=== PATIENT | male | born 1995 | race Caucasian/White ===

== ENCOUNTER → 2017-02-28 | Outpatient (CLI) | payer BC | END | disposition home or self-care (01) | LOC: LABWHC1 10:31 | PROVIDERS: ATTEND Psychiatry & Neurology Neurology | DX: G40.209 Localization-related (focal) (partial) symptomatic epilepsy and epileptic syndromes with complex partial seizures, not intractable, without status epilepticus (principal) | CPT/HCPCS: 36415; 80177 ==

== ENCOUNTER → 2017-12-05 | Outpatient (CLI) | payer BC | END | disposition home or self-care (01) | LOC: LABWHC1 11:14 | PROVIDERS: ATTEND Psychiatry & Neurology Neurology | DX: G40.209 Localization-related (focal) (partial) symptomatic epilepsy and epileptic syndromes with complex partial seizures, not intractable, without status epilepticus (principal) | CPT/HCPCS: 36415; 80177 ==

== ENCOUNTER → 2018-09-01 | Outpatient (CLI) | payer BC ==
[2018-09-01 15:18] LABS: HCT 49.1 % (39.0-53.0); HGB 16.8 gm/dL (13.0-17.5); MCH 30.3 pg (25.0-35.0); MCHC 34.3 g/dL (31.0-37.0); MCV 88.4 fL (80.0-100.0); Mean Platelet Volume 7.6; Platelet Count 183 k/uL (150-450); RBC 5.55 m/uL (4.30-5.90); RDW 12.2 % (11.5-15.5); WBC 6.4 k/uL (3.8-10.6)
[2018-09-01 15:30] LABS: ALT 30 U/L (21-72); AST 21 U/L (17-59); Albumin 4.9 g/dL (3.5-5.0); Alkaline Phosphatase 86 U/L (38-126); Anion Gap 9 mmol/L; Blood Urea Nitrogen 20 mg/dL (9-20); Calcium 10.3 mg/dL (8.4-10.2); Carbon Dioxide 28 mmol/L (22-30); Chloride 105 mmol/L (98-107); Glucose 65 mg/dL (74-99); Potassium 4.5 mmol/L (3.5-5.1); Sodium 142 mmol/L (137-145); Total Bilirubin 0.7 mg/dL (0.2-1.3); Total Protein 8.3 g/dL (6.3-8.2)
== END ==
LOC: LABWHC1 14:55
PROVIDERS: ATTEND Psychiatry & Neurology Neurology
DX: G40.909 Epilepsy, unspecified, not intractable, without status epilepticus (principal); Z79.899 Other long term (current) drug therapy
CPT/HCPCS: 36415; 80053; 85027

== ENCOUNTER → 2018-10-12 | Outpatient (CLI) | payer BC | END | disposition home or self-care (01) | LOC: LABWHC1 10:13 | PROVIDERS: ATTEND Psychiatry & Neurology Neurology | DX: G40.209 Localization-related (focal) (partial) symptomatic epilepsy and epileptic syndromes with complex partial seizures, not intractable, without status epilepticus (principal) | CPT/HCPCS: 36415; 80164 ==

== ENCOUNTER → 2019-07-09 | Outpatient (CLI) | payer BC ==
--- NOTE | 2019-07-11 07:46 | MR ---
EXAMINATION TYPE: MR brain wo/w con DATE OF EXAM: 07/09/2019 COMPARISON: MRI brain June 06, 2014. CT brain May 11, 2014. HISTORY: Seizures, headaches TECHNIQUE: Multiplanar, multisequence images of the brain and brainstem is performed without and with IV contras t, utilizing 7.5 mL intravenous Gadavist . FINDINGS: Diffusion weighted images demonstrate no evidence of a recent infarct or other diffusion ab normality. There is no extra-axial fluid collection or significant white matter signal abnormality. The ventricular system and cisternal spaces are normal in size and appearance. The brain volume is age appropriate. T2 coronal weighted images show hippocampal gyri are symmetric and felt within luan l limits. Midline structures demonstrate normal morphology. The craniocervical junction appears within normal limits. Post contrast images demonstrate no abnormal enhancement. The dural venous sinuses appear pa tent. The visualized sinuses are clear and the globes are intact. IMPRESSION: Fairly unremarkable study. No significant change from 2014 studies.
== END | disposition home or self-care (01) ==
LOC: RADMRIMAIN 21:19
PROVIDERS: ATTEND Psychiatry & Neurology Neurology
DX: G40.209 Localization-related (focal) (partial) symptomatic epilepsy and epileptic syndromes with complex partial seizures, not intractable, without status epilepticus (principal)
CPT/HCPCS: 70553; A9585

== ENCOUNTER → 2020-01-26 | Outpatient (CLI) | payer BC | END | disposition home or self-care (01) | LOC: LABWHC1 13:37 | PROVIDERS: ATTEND Psychiatry & Neurology Neurology | DX: G40.209 Localization-related (focal) (partial) symptomatic epilepsy and epileptic syndromes with complex partial seizures, not intractable, without status epilepticus (principal) | CPT/HCPCS: 36415; 80164 ==

== ENCOUNTER → 2022-01-28 | Outpatient (CLI) | payer BC ==
[2022-01-28 19:10] LABS: Platelet Count 159 X 10*3/uL (140-440)
[2022-01-28 21:04] LABS: Valproic Acid (Depakene) 30.4 ug/mL (50.0-100.0)
== END | disposition home or self-care (01) ==
LOC: LABWHC1 12:28
PROVIDERS: ATTEND Psychiatry & Neurology Neurology
DX: G40.209 Localization-related (focal) (partial) symptomatic epilepsy and epileptic syndromes with complex partial seizures, not intractable, without status epilepticus (principal)
CPT/HCPCS: 36415; 80164; 84450; 84460; 85049

== ENCOUNTER → 2022-05-08 | Outpatient (CLI) | payer BC ==
[2022-05-08 14:21] LABS: HCT 46.8 % (39.6-50.0); HGB 15.2 g/dL (13.0-17.0); MCH 28.5 pg (27.0-32.0); MCHC 32.5 g/dL (32.0-37.0); MCV 87.8 fL (80.0-97.0); Mean Platelet Volume 11.5 fL (9.5-12.2); NRBC Per 100 WBC 0 /100 WBCS (0.0-0.0); Platelet Count 213 X 10*3/uL (140-440); RBC 5.33 X 10*6/uL (4.40-5.60); RDW 11.5 % (11.5-14.5); WBC 7.48 X 10*3/uL (4.50-10.00)
[2022-05-08 14:58] LABS: African American GFR (CKD) 95.8 (60.0-200.0); Albumin 5.3 g/dL (3.8-4.9); Albumin/Globulin Ratio 2.35 (1.60-3.17); Anion Gap 13.4 mmol/L (10.00-18.00); BUN/Creat Ratio 15.55 Ratio (12.00-20.00); Blood Urea Nitrogen 18.5 mg/dL (9.0-27.0); Calcium 10.6 mg/dL (8.7-10.3); Carbon Dioxide 27.5 mmol/L (20.0-27.5); Globulin 2.2 g/dL (1.6-3.3); Non-African American GFR(CKD) 82.6 (60.0-200.0); Potassium 4.5 mmol/L (3.5-5.5); T4, Free (Free Thyroxine) 1.86 ng/dL (0.800-1.800); Total Bilirubin 0.8 mg/dL (0.30-1.20); Total Protein 7.5 g/dL (6.2-8.2)
== END | disposition home or self-care (01) ==
LOC: LABWHC1 08:28
PROVIDERS: ATTEND Psychiatry & Neurology Neurology
DX: G40.209 Localization-related (focal) (partial) symptomatic epilepsy and epileptic syndromes with complex partial seizures, not intractable, without status epilepticus (principal); G44.85 Primary stabbing headache; Z79.899 Other long term (current) drug therapy
CPT/HCPCS: 36415; 80053; 82306; 82607; 84439; 84443; 84481; 85027

== ENCOUNTER 2022-07-12 19:39 | Emergency (ER) | payer BC ==
[2022-07-12 19:49] VITALS: TEMP 98
--- NOTE | 2022-07-12 20:06 | ED ---
General Adult HPI - General Chief complaint: Chest Pain Stated complaint: Back Pain Time Seen by Provider: 07/12/22 19:56 Source: patient, EMS Mode of arrival: EMS Limitations: no limitations - History of Present Illness Initial comments: Patient presents to the ED by ambulance for evaluation with his grandfather at bedside. Patient states that he fell asleep in his bed after working the overnight shift last night, and he states that he awoke this evening on his couch. Patient states that he is unsure how he got to the couch, and he also states that he noticed that the trash can in the bathroom was knocked over. Patient states that he is the only person that lives in his residence. Patient states that he has a history of seizures, and he states that his neurologist took him off of his Depakote about 5 months ago. Patient states that his last seizure was 7 years ago. Patient is concerned that he may have had a seizure today. Patient, however, denies having any postictal symptoms. Patient states that he did have some chest pain earlier this evening, but it has since resolved. Patient is currently only complaining of having mid upper back pain that is worse when he changes positions. Patient denies medication abuse or overdose, illicit drug use, alcohol use, fever or chills, headache, focal numbness/weakness/neuro deficit, visual changes, speech difficulty, neck pain, extremity pain, pleuritic pain, dyspnea, cough or cold symptoms, palpitations, dizziness, abdominal pain, nausea/vomiting/diarrhea, dysuria or urinary symptom s, leg or calf swelling or pain, or any other symptoms or complaints. - Related Data Home Medications Medication Instructions Recorded Confirmed levETIRAcetam [Keppra] 750 mg PO BID 06/04/16 06/04/16 Allergies Allergy/AdvReac Type Severity Reaction Status Date / Time No Known Allergies Allergy Verified 11/27/14 22:37 Review of Systems ROS Statement: Those systems with pertinent positive or pertinent negative responses have been documented in the HPI. ROS Other: All systems not noted in ROS Statement are negative. Past Medical History Past Medical History: Seizure Disorder Additional Past Medical History / Comment(s): seizure as an infant and then one aprox 1 year ago. History of Any Multi-Drug Resistant Organisms: None Reported Additional Past Surgical History / Comment(s): right ankle Past Psychological History: No Psychological Hx Reported Past Alcohol Use History: Occasional Past Drug Use History: None Reported General Exam Limitations: no limitations General appearance: alert, in no apparent distress Head exam: Present: atraumatic, normocephalic Eye exam: Present: normal appearance, PERRL, EOMI ENT exam: Present: mucous membranes moist Neck exam: Present: other (Trachea is in midline). Absent: tenderness, meningismus Respiratory exam: Present: normal lung sounds bilaterally. Absent: respiratory distress, wheezes, rales, rhonchi, stridor, chest wall tenderness Cardiovascular Exam: Present: regular rate, normal rhythm, normal heart sounds, other (Normal radial pulses bilaterally) GI/Abdominal exam: Present: soft. Absent: distended, tenderness, guarding Extremities exam: Present: full ROM, other (Negative Homans sign bilaterally). Absent: tenderness, pedal edema, calf tenderness Back exam: Present: normal inspection, full ROM. Absent: tenderness Neurological exam: Present: alert, oriented X3, CN II-XII intact. Absent: motor sensory deficit Psychiatric exam: Present: normal affect, normal mood Skin exam: Present: warm, dry, intact, normal color Course Vital Signs 07/12/22 19:41 Temperature 98.0 F Pulse Rate 76 Respiratory 16 Rate Blood Pressure 143/100 O2 Sat by Pulse 99 Oximetry - Reevaluation(s) Reevaluation #1: 07/12/22 22:16 Patient denies development of any new pain or symptoms while in the ED. Patient remains alert and breathing comfortably. Patient and grandfather are aware the patient's test results, and patient feels comfortable being discharged from the ED at this time. Patient was counseled about chest pain, back pain, vertebral c ompression fractures and seizures. Patient was given seizure precaution instructions, including instructions not to drive or operate heavy machinery. Patient was instructed to follow up closely with his primary care provider, as well as his neurologist. Patient was clearly explained return and follow-up instructions, and he feels comfortable with this plan. EKG Findings - EKG Comments: EKG Findings:: Normal sinus rhythm, ventricular rate of 72 bpm, no ectopy, normal AK and QRS intervals, normal QT interval, normal axis, no ST or T-wave abnormality Medical Decision Making - Medical Decision Making Patient's labs are fairly unremarkable other than an elevated d-dimer. Antoni allen's imaging studies are also fairly unremarkable other than a T7 compression fracture of uncertain age. I suspect that the patient's compression fracture is likely old, but given that the patient is experiencing back pain, I have explained to him that he potentially may have sustained a recent T7 compression fracture. Patient was counseled about compression fractures. I do not suspect that the patient's chest pain is due to an emergent medical or cardiac condition. Patient's CT angiography chest is negative for PE. Patient's troponin is within normal limits. Patient's EKG is fairly unremarkable. I have explained to the patient that a seizure is possible given the patient states th at he fell asleep in his bed and woke up on his couch, but I think that this too is quite unlikely. Still, patient was given seizure precaution instructions, and was instructed to follow up closely with his neurology for further evaluation and management. Will discharge patient home with his grandfather at this time. Patient feels comfortable with this plan. - Lab Data Result diagrams: 07/12/22 20:35 07/12/22 20:35 Lab Results 07/12/22 07/12/22 07/12/22 Range/Units 20:35 20:35 20:35 WBC 13.6 H (3.8-10.6) k/uL RBC 5.34 (4.30-5.90) m/uL Hgb 15.7 (13.0-17.5) gm/dL Hct 47.0 (39.0-53.0) % MCV 87.9 (80.0-100.0) fL MCH 29.3 (25.0-35.0) pg MCHC 33.3 (31.0-37.0) g/dL RDW 11.6 (11.5-15.5) % Plt Count 178 (150-450) k/uL MPV 8.4 Neutrophils % 89 % Lymphocytes % 7 % Monocytes % 3 % Eosinophils % 1 % Basophils % 0 % Neutrophils # 12.1 H (1.3-7.7) k/uL Lymphocytes # 1.0 (1.0-4.8) k/uL Monocytes # 0.3 (0-1.0) k/uL Eosinophils # 0.1 (0-0.7) k/uL Basophils # 0.1 (0-0.2) k/uL PT 10.6 (9.0-12.0) sec INR 1.0 (<1.2) APTT 22.1 (22.0-30.0) sec D-Dimer 3.55 H (<0.60) mg/L FEU Sodium 139 (137-145) mmol/L Potassium 4.4 (3.5-5.1) mmol/L Chloride 103 (98-107) mmol/L Carbon Dioxide 23 (22-30) mmol/L Anion Gap 13 mmol/L BUN 21 H (9-20) mg/dL Creatinine 1.06 (0.66-1.25) mg/dL Est GFR (CKD-EPI)AfAm >90 (>60 ml/min/1.73 sqM) Est GFR (CKD-EPI)NonAf >90 (>60 ml/min/1.73 sqM) Glucose 93 (74-99) mg/dL Calcium 10.0 (8.4-10.2) mg/dL Magnesium 2.1 (1.6-2.3) mg/dL Total Bilirubin 0.7 (0.2-1.3) mg/dL AST 40 (17-59) U/L ALT 47 (4-49) U/L Alkaline Phosphatase 99 (38-126) U/L Troponin I (0.000-0.034) ng/mL Total Protein 7.5 (6.3-8.2) g/dL Albumin 4.7 (3.5-5.0) g/dL 07/12/22 Range/Units 20:35 WBC (3.8-10.6) k/uL RBC (4.30-5.90) m/uL Hgb (13.0-17.5) gm/dL Hct (39.0-53.0) % MCV (80.0-100.0) fL MCH (25.0-35.0) pg MCHC (31.0-37.0) g/dL RDW (11.5-15.5) % Plt Count (150-450) k/uL MPV Neutrophils % % Lymphocytes % % Monocytes % % Eosinophils % % Basophils % % Neutrophils # (1.3-7.7) k/uL Lymphocytes # (1.0-4.8) k/uL Monocytes # (0-1.0) k/uL Eosinophils # (0-0.7) k/uL Basophils # (0-0.2) k/uL PT (9.0-12.0) sec INR (<1.2) APTT (22.0-30.0) sec D-Dimer (<0.60) mg/L FEU Sodium (137-145) mmol/L Potassium (3.5-5.1) mmol/L Chloride (98-107) mmol/L Carbon Dioxide (22-30) mmol/L Anion Gap mmol/L BUN (9-20) mg/dL Creatinine (0.66-1.25) mg/dL Est GFR (CKD-EPI)AfAm (>60 ml/min/1.73 sqM) Est GFR (CKD-EPI)NonAf (>60 ml/min/1.73 sqM) Glucose (74-99) mg/dL Calcium (8.4-10.2) mg/dL Magnesium (1.6-2.3) mg/dL Total Bilirubin (0.2-1.3) mg/dL AST (17-59) U/L ALT (4-49) U/L Alkaline Phosphatase (38-126) U/L Troponin I <0.012 (0.000-0.034) ng/mL Total Protein (6.3-8.2) g/dL Albumin (3.5-5.0) g/dL - Radiology Data Chest x-ray: No acute cardiopulmonary disease/process. Noncontrast head CT: Negative unenhanced head CT scan. No change. CT angiography chest with IV contrast: No evidence of pulmonary embolism. No acute lung disease. T7 compression fracture of uncertain age. Disposition Clinical Impression: Chest pain, Back pain, Compression fracture of T7 vertebra Narrative: Possible seizure Disposition: HOME SELF-CARE Condition: Stable Instructions (If sedation given, give patient instructions): Chest Pain (ED), Vertebral Compression Fracture (ED), Recurrent Seizures in Adults (ED), Back Pain (ED) Additional Instructions: Return to the ER immediately should you develop new or worsening pain, a seizure, shortness of breath, a fever, feeling dizzy or faint, or new or worsening symptoms. Follow up closely with your primary care provider, as well as your neurologist. Is patient prescribed a controlled substance at d/c from ED?: No Referrals: None,Stated [Primary Care Provider] - 1-2 days Marcello Paiz MD [STAFF PHYSICIAN] - 1-2 days Time of Disposition: 22:24
[2022-07-12] MEDS ORDERED: SODIUM CHLORIDE 0.9% 1,000 ML IV STA (20:29)
[2022-07-12 20:44] LABS: Basophils # (A) 0.1 k/uL (0-0.2); Basophils % (A) 0 %; Eosinophils # (A) 0.1 k/uL (0-0.7); Eosinophils % (A) 1 %; HGB 15.7 gm/dL (13.0-17.5); Lymphocytes % (A) 7 %; MCH 29.3 pg (25.0-35.0); MCHC 33.3 g/dL (31.0-37.0); MCV 87.9 fL (80.0-100.0); Mean Platelet Volume 8.4; Monocytes # (A) 0.3 k/uL (0-1.0); Monocytes % (A) 3 %; Neutrophils # (A) 12.1 k/uL (1.3-7.7); Neutrophils % (A) 89 %; Platelet Count 178 k/uL (150-450); RBC 5.34 m/uL (4.30-5.90); RDW 11.6 % (11.5-15.5); WBC 13.6 k/uL (3.8-10.6)
[2022-07-12 20:52] LABS: ALT 47 U/L (4-49); AST 40 U/L (17-59); African American GFR (CKD) >90 (>60 ml/min/1.73 sqM); Albumin 4.7 g/dL (3.5-5.0); Alkaline Phosphatase 99 U/L (38-126); Anion Gap 13 mmol/L; Blood Urea Nitrogen 21 mg/dL (9-20); Carbon Dioxide 23 mmol/L (22-30); Chloride 103 mmol/L (98-107); Glucose 93 mg/dL (74-99); Magnesium 2.1 mg/dL (1.6-2.3); Non-African American GFR(CKD) >90 (>60 ml/min/1.73 sqM); Potassium 4.4 mmol/L (3.5-5.1); Sodium 139 mmol/L (137-145); Total Bilirubin 0.7 mg/dL (0.2-1.3); Total Protein 7.5 g/dL (6.3-8.2)
[2022-07-12 20:59] LABS: Partial Thromboplastin Time 22.1 sec (22.0-30.0); Prothrombin Time 10.6 sec (9.0-12.0)
--- NOTE | 2022-07-12 21:11 | XR ---
EXAMINATION TYPE: XR chest 2V DATE OF EXAM: 07/12/2022 9:07 PM COMPARISON: None TECHNIQUE: XR chest 2V Frontal and lateral views of the chest. CLINICAL INDICATION:Male, 27 years old with history of Chest Pain; FINDINGS: Lungs/Pleura: There is no evidence of pleural effusion, focal consolidation, or pneumothorax. Pulmonary vascularity: Unremarkable. Heart/mediastinum: Cardiomediastinal silhouette is unremarkable. Musculoskeletal: No acute osseous pathology. IMPRESSION: No acute cardiopulmonary disease/process.
--- NOTE | 2022-07-12 21:13 | CT ---
EXAMINATION TYPE: CT brain wo con DATE OF EXAM: 07/12/2022 COMPARISON: 05/11/2014 HISTORY: Possible Seizure CT DLP: 1103.4 mGycm Automated exposure control for dose reduction was used. Images of the brain obtained with no contrast. Ventricles and sulci appear normal. There is no mass effect or midline shift. No sign of intracranial hemorrhage. Calvarium is intact. There is normal aeration of the mastoid sinuses. IMPRESSION: Negative unenhanced head CT scan. No change.
--- NOTE | 2022-07-12 22:09 | CT ---
EXAMINATION TYPE: CT chest angio for PE DATE OF EXAM: 07/12/2022 COMPARISON: None HISTORY: Chest pain, elevated d-dimer, rule out PE CT DLP: 289 mGycm Automated exposure control for dose reduction was used. CONTRAST: Performed with IV Contrast, patient injected with 100cc mL of Isovue 370. There are Three-D postprocessed images. There is no mediastinal adenopathy. Thoracic aorta is intact. No aneurysm or dissection. There are no hilar masses. There is normal contrast opacification of the pulmonary arteries. No filling defect. The heart size is normal. No pericardial effusion. No pleural effusion. Upper abdominal soft tissues are intact. The lungs are clear of infiltrate. No evidence of a pulmonary mass. There is T7 compression fracture 25%. The age of the fractures is not clear. There is no thoracic paraspinal mass. No focal bone destr uction. IMPRESSION: No evidence of pulmonary embolism. No acute lung disease. T7 compression fracture of uncertain age.
[2022-07-12 22:49] VITALS: BP 136/90; PULSE 78; RESP 18
== END 2022-07-12 22:41 | disposition home or self-care (01) ==
LOC: EC 19:39
DX: M48.54XA Collapsed vertebra, not elsewhere classified, thoracic region, initial encounter for fracture (principal); R07.9 Chest pain, unspecified; R79.1 Abnormal coagulation profile
CPT/HCPCS: 99285; 96360; 36415; 93005; 85379; 80053; 83735; 84484; 85025; 85610; 85730; 71046; 70450; 71275; Q9967

== ENCOUNTER → 2022-07-26 | Outpatient (CLI) | payer BC ==
[2022-07-26 23:06] LABS: T4, Free (Free Thyroxine) 1.4 ng/dL (0.800-1.800)
== END | disposition home or self-care (01) ==
LOC: LABWHC1 14:26
PROVIDERS: ATTEND Family Medicine
DX: E05.90 Thyrotoxicosis, unspecified without thyrotoxic crisis or storm (principal)
CPT/HCPCS: 36415; 84439; 84443; 84481; 86376

== ENCOUNTER → 2022-08-15 | Outpatient (CLI) | payer BC ==
--- NOTE | 2022-08-15 16:47 | NM ---
EXAMINATION TYPE: NM bone scan whole body DATE OF EXAM: 08/15/2022 COMPARISON: NONE HISTORY: Wedge compression deformity in the region of T7-T8. Delayed whole-body scanning was performed following the injection of 21.7 mCi Tc 99m MDP. Images wer e acquired 3 hours post injection. FINDINGS: In the region at T7 there is focal increased radiotracer accumulation suggesting the compression defo rmity at this level is acute. There is focal increased intensity within the right inferior acetabulum. Metastatic disease or acute trauma could be considered. There is some mild increased uptake along the medial left femur. Correlate for posttraumatic changes. Metastatic lesion is not excluded. There are 2 foci of radiotracer within the region of the inferior left left pubic symphysis. IMPRESSION: 1. Scattered areas of nonspecific uptake. Consider metastatic disease as well as trauma. 2. Uptake in the region of T7 suspicious for acute compression deformity.
== END | disposition home or self-care (01) ==
LOC: RADNMMAIN 09:57
PROVIDERS: ATTEND Physical Medicine & Rehabilitation
DX: S22.060A Wedge compression fracture of T7-T8 vertebra, initial encounter for closed fracture (principal)
CPT/HCPCS: 78306; A9503

== ENCOUNTER → 2022-10-31 | Outpatient (CLI) | payer BC | END | disposition home or self-care (01) | LOC: LABWHC1 12:28 | PROVIDERS: ATTEND Psychiatry & Neurology Neurology | DX: G40.209 Localization-related (focal) (partial) symptomatic epilepsy and epileptic syndromes with complex partial seizures, not intractable, without status epilepticus (principal) | CPT/HCPCS: 36415; 80235 ==

== ENCOUNTER → 2022-12-04 | Outpatient (CLI) | payer BC | END | disposition home or self-care (01) | LOC: LABWHC1 08:28 | PROVIDERS: ATTEND Psychiatry & Neurology Neurology | DX: G40.209 Localization-related (focal) (partial) symptomatic epilepsy and epileptic syndromes with complex partial seizures, not intractable, without status epilepticus (principal) | CPT/HCPCS: 36415; 80235 ==

== ENCOUNTER → 2023-07-30 | Outpatient (CLI) | payer BC | END | disposition home or self-care (01) | LOC: LABWHC1 09:45 | PROVIDERS: ATTEND Psychiatry & Neurology Neurology | DX: G40.209 Localization-related (focal) (partial) symptomatic epilepsy and epileptic syndromes with complex partial seizures, not intractable, without status epilepticus (principal) | CPT/HCPCS: 36415; 80235 ==

== ENCOUNTER → 2023-10-13 | Outpatient (CLI) | payer BC | END | disposition home or self-care (01) | LOC: LABWHC1 09:02 | PROVIDERS: ATTEND Psychiatry & Neurology Neurology | DX: G40.209 Localization-related (focal) (partial) symptomatic epilepsy and epileptic syndromes with complex partial seizures, not intractable, without status epilepticus (principal) | CPT/HCPCS: 36415; 80235 ==

== ENCOUNTER 2023-12-20 16:49 | Emergency (ER) | payer OTHER, BC ==
[2023-12-20] MEDS ORDERED: SODIUM CHLORIDE 0.9% 1,000 ML IV STA ×2 (17:17→20:54)
[2023-12-20 17:18] VITALS: TEMP 97.8
[2023-12-20 17:41] LABS: Basophils % (A) 0 %; Eosinophils # (A) 0.1 k/uL (0-0.7); Eosinophils % (A) 2 %; HCT 47.9 % (39.0-53.0); HGB 16.3 gm/dL (13.0-17.5); Lymphocytes # (A) 1.2 k/uL (1.0-4.8); Lymphocytes % (A) 18 %; MCH 29.9 pg (25.0-35.0); MCV 87.9 fL (80.0-100.0); Mean Platelet Volume 8.3; Monocytes # (A) 0.3 k/uL (0-1.0); Monocytes % (A) 4 %; Neutrophils % (A) 75 %; Platelet Count 188 k/uL (150-450); RBC 5.45 m/uL (4.30-5.90); RDW 11.9 % (11.5-15.5); WBC 6.6 k/uL (3.8-10.6)
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
[2023-12-20 18:00] LABS: ALT 52 U/L (4-49); AST 35 U/L (17-59); African American GFR (CKD) >90 (>60 ml/min/1.73 sqM); Albumin 4.7 g/dL (3.5-5.0); Alcohol <10 mg/dL; Alkaline Phosphatase 128 U/L (38-126); Anion Gap 13 mmol/L; Blood Urea Nitrogen 13 mg/dL (9-20); Calcium 9.8 mg/dL (8.4-10.2); Carbon Dioxide 19 mmol/L (22-30); Chloride 108 mmol/L (98-107); Glucose 116 mg/dL (74-99); Magnesium 2.2 mg/dL (1.6-2.3); Non-African American GFR(CKD) >90 (>60 ml/min/1.73 sqM); Potassium 4.4 mmol/L (3.5-5.1); Sodium 140 mmol/L (137-145); Total Bilirubin 1.3 mg/dL (0.2-1.3); Total Protein 7.8 g/dL (6.3-8.2)
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
[2023-12-20] MEDS ORDERED: LORazepam 2 MG/ML INJ IV PRN (18:07)
[2023-12-20 18:09] LABS: Partial Thromboplastin Time 23.5 sec (22.0-30.0); Prothrombin Time 11.3 sec (10.0-12.5)
--- NOTE | 2023-12-20 19:56 | CT ---
EXAMINATION TYPE: CT chest angio for PE CT DLP: 303.4 mGycm, Automated exposure control for dose reduction was used. DATE OF EXAM: 12/20/2023 7:02 PM COMPARISON: CT Chest for PE 07/12/2022 CLINICAL INDICATION:Male, 28 years old with history of r/o pe; High Dimer TECHNIQUE/CONTRAST: CTA scan of the thorax is performed with IV Contrast, patient injected with 100 ml mL of Isovue 300, MIP images are created and reviewed these are created on a separate workstation.. FINDINGS: There is adequate contrast bolus and timing. Examination is degraded by motion artifact. PULMONARY ARTERIES: There is no evidence for a central filling defect within the pulmonary vasculatur e to suggest acute central or saddle pulmonary embolism. Limited evaluation of the segmental and subs egmental branches due to motion artifact. Pulmonary trunk is normal in size. Trunk measures 2.5 CM. HEART: Heart size upper normal. No appreciable coronary calcifications. No appreciable pericardial e ffusion. AORTA: Appears normal in course and caliber without significant atherosclerosis. Ascending aorta is at most 2.7 CM, descending is 1.9 CM. LOWER NECK: No significant findings. MEDIASTINUM: No gross evidence of adenopathy. SOFT TISSUES/LYMPH NODES: Unremarkable soft tissues. No axillary adenopathy. LUNGS/ PLEURA: Mild dependent atelectasis. No sizable nodule or mass. There are some patchy cloudlike ground glass subpleural opacities seen in the inferior aspect of the right upper lobe, and minimal s imilar opacities in the right lower lobe. AIRWAY: Central airways are patent. MUSCULOSKELETAL: No acute osseous abnormality. The degree of compression deformity of T7 is similar t o before, and there is now a chronic healed appearance of the vertebral body. There is mild superior endplate depression T6 and T8 with small Schmorl's node at T8, also appear chronic. UPPER ABDOMEN: No significant findings. IMPRESSION: 1. No evidence of central pulmonary embolism. Limited evaluation of the segmental and subsegmental b ranches. 2. Small groundglass infiltrates in the right lung, likely reflect infectious or inflammatory proces s. Consider atypical viral infections in the differential.
[2023-12-20 20:34] LABS: Appearance,Urine Clear (Clear); Bilirubin,Urine Negative (Negative); Blood,Urine Negative (Negative); Color,Urine Colorless; Glucose,Urine (UA) Negative (Negative); Ketones,Urine Negative (Negative); Leukocyte Esterase,Urine Negative (Negative); Nitrite,Urine Negative (Negative); PH, Urine 5.5 (5.0-8.0); Protein,Urine Trace (Negative); Specific Gravity,Urine 1.011 (1.001-1.035); Urobilinogen,Urine <2.0 mg/dL (<2.0)
[2023-12-20] MEDS ORDERED: KETOROLAC 15 MG/ML 1 ML VIAL IVP STA (20:37)
[2023-12-20 21:15] VITALS: RESP 17
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
[2023-12-20 22:43] VITALS: BP 123/87; PULSE 66
== END 2023-12-20 22:27 | disposition home or self-care (01) ==
LOC: SUPCPDRO 16:49 → EC 16:49
DX: R56.9 Unspecified convulsions (principal); V89.2XXA Person injured in unspecified motor-vehicle accident, traffic, initial encounter; Y92.410 Unspecified street and highway as the place of occurrence of the external cause
CPT/HCPCS: 36415; 85379; 80053; 83605; 83735; 84484; 85025; 85610; 85730; 81003; 80320; 80235; 72100; 72125; 70450; 71275; 99285; 96374; 96361 ×2; J1885; Q9967

== ENCOUNTER → 2023-12-23 | Outpatient (CLI) | payer BC | END | disposition home or self-care (01) | LOC: LABWHC1 12:07 | PROVIDERS: ATTEND Psychiatry & Neurology Neurology | DX: G40.209 Localization-related (focal) (partial) symptomatic epilepsy and epileptic syndromes with complex partial seizures, not intractable, without status epilepticus (principal) | CPT/HCPCS: 36415; 80235 ==

== ENCOUNTER → 2024-09-02 | Outpatient (CLI) | payer BC | END | disposition home or self-care (01) | LOC: LABWHC1 11:19 | PROVIDERS: ATTEND Psychiatry & Neurology Neurology | DX: G40.209 Localization-related (focal) (partial) symptomatic epilepsy and epileptic syndromes with complex partial seizures, not intractable, without status epilepticus (principal) | CPT/HCPCS: 36415; 80235 ==

== ENCOUNTER 2024-11-30 15:44 | Emergency (ER) | payer BC, OTHER ==
[2024-11-30 15:56] VITALS: RESP 18
--- NOTE | 2024-11-30 15:59 | ED ---
General Adult HPI - General Chief complaint: Seizure Stated complaint: Seizure Time Seen by Provider: 11/30/24 15:58 Source: patient, EMS, RN notes reviewed Mode of arrival: EMS Limitations: no limitations - History of Present Illness Initial comments: This is a 29-year-old male with a history of seizure disorder on Vimpat presenting to emergency department via EMS for chief complaint of a seizure that occurred prior to arrival. Patient states that he was in the shower when he had a seizure. Patient does not remember most of the seizure episode. States that he ran out of his antiseizure medication, Vimpat, with his last dose being on 11/29/2024 at 1600. Currently, patient states that he has a mild headache after the fall and pain to the right shoulder. He denies chest pain, shortness of breath, heart palpitations, dizziness, lightheadedness. - Related Data Home Medications Medication Instructions Recorded Confirmed Lacosamide [Vimpat] 200 mg PO BID 11/30/24 11/30/24 Allergies Allergy/AdvReac Type Severity Reaction Status Date / Time No Known Allergies Allergy Verified 11/30/24 16:15 Review of Systems ROS Statement: Those systems with pertinent positive or pertinent negative responses have been documented in the HPI. ROS Other: All systems not noted in ROS Statement are negative. Past Medical History Past Medical History: Seizure Disorder Additional Past Medical History / Comment(s): seizure as an and then one aprox 1 year ago. History of Any Multi-Drug Resistant Organisms: None Reported Additional Past Surgical History / Comment(s): right ankle Past Psychological History: No Psychological Hx Reported Past Alcohol Use History: Occasional Past Drug Use History: None Reported General Exam Limitations: no limitations Head exam: Absent: atraumatic Expanded Head exam: Present: laceration (3 cm laceration and 1 cm laceration over the anterior mid-scalp). Absent: hematoma, raccoon eyes Eye exam: Present: normal appearance, PERRL, EOMI. Absent: scleral icterus, conjunctival injection, periorbital swelling Neck exam: Present: normal inspection. Absent: tenderness, meningismus, lymphadenopathy Respiratory exam: Present: normal lung sounds bilaterally. Absent: respiratory distress, wheezes, rales, rhonchi, stridor Cardiovascular Exam: Present: regular rate, normal rhythm, normal heart sounds. Absent: systolic murmur, diastolic murmur, rubs, gallop, clicks GI/Abdominal exam: Present: soft, normal bowel sounds. Absent: distended, tenderness, guarding, rebound, rigid Right Shoulder Exam: Present: normal inspection, full ROM, tenderness, abrasion. Absent: swelling, deformity, crepitus Vascular: Present: normal capillary refill, radial pulse (2+). Absent: vascular compromise Back exam: Present: normal inspection Neurological exam: Present: alert, oriented X3, CN II-XII intact Course Vital Signs 11/30/24 11/30/24 15:50 17:11 Temperature 97.9 F 98 F Pulse Rate 107 H 89 Respiratory 18 18 Rate Blood Pressure 145/92 132/98 O2 Sat by Pulse 99 98 Oximetry Procedures - Laceration Laceration #1 Consent Obtained: verbal consent Indication: laceration Site: scalp Size (cm): 3 Description: linear Depth: simple, single layer Type of Sutures: other (staple) Size of Sutures: other (staple) Number of Sutures: 3 (staple) Patient Tolerated Procedure: well, no complications Laceration #2 Consent Obtained: verbal consent Indication: laceration Site: scalp Size (cm): 2 Description: linear Depth: simple, single layer Type of Sutures: other (staple) Size of Sutures: other (staple) Number of Sutures: 1 Patient Tolerated Procedure: well, no complications Medical Decision Making - Medical Decision Making Was pt. sent in by a medical professional or institution (Dr. PA, SPEECH THERAPY DIRECTOR, urgent care, hospital, or detention...) When possible be specific @ -No Did you speak to anyone other than the patient for history (EMS, parent, family, police, friend...)? What history was obtained from this source @ -No Did you review nursing and triage notes (agree or disagree)? Why? @ -I reviewed and agree with nursing and triage notes Were old charts reviewed (outside hosp., previous admission, EMS record, old EKG, old radiological studies, urgent care reports/EKG's, detention records)? Report findings @ -No old charts were reviewed Differential Diagnosis (chest pain, altered mental status, abdominal pain women, abdominal pain men, vaginal bleeding, weakness, fever, dyspnea, syncope, headache, dizziness, GI bleed, back pain, seizure, CVA, palpatations, mental health, musculoskeletal)? @ -Differential Seizure: Recurrent seizure disorder, febrile seizure, alcohol withdrawal, stimulants, meningitis, encephalitis, intercranial hemorrhage, intracranial tumor, stroke, eclampsia, thyrotoxicosis, hypocalcemia, hyponatremia, hypernatremia, hypomagnesemia, psychogenic, this is not meant to be an all-inclusive list. EKG interpreted by me (3pts min.). @ -none X-rays interpreted by me (1pt min.). @ -X-ray of the right shoulder completed with no acute osseous abnormality CT interpreted by me (1pt min.). @ -CT of the brain and C-spine without contrast no acute or cranial cervical spine process U/S interpreted by me (1pt. min.). @ -None done What testing was considered but not performed or refused? (CT, X-rays, U/S, labs)? Why? @ -None What meds were considered but not given or refused? Why? @ -None Did you discuss the management of the patient with other professionals (professionals i.e. , PA, SPEECH THERAPY DIRECTOR, lab, RT, psych nurse, health and social care teacher, concrete truck driver, teacher, community arts officer, human services case manager)? Give summary @ -No Was smoking cessation discussed for >3mins.? @ -No Was critical care preformed (if so, how long)? @ -No Were there social determinants of health that impacted care today? How? (Homelessness, low income, unemployed, alcoholism, drug addiction, transportation, low edu. Level, literacy, decrease access to med. care, long term, rehab)? @ -No Was there de-escalation of care discussed even if they declined (Discuss DNR or withdrawal of care, Hospice)? DNR status @ -No What co-morbidities impacted this encounter? (DM, HTN, Smoking, COPD, CAD, Cancer, CVA, ARF, Chemo, Hep., AIDS, mental health diagnosis, sleep apnea, morbid obesity)? @ -None Was patient admitted / discharged? Hospital course, mention meds given and route, prescriptions, significant lab abnormalities, going to OR and other pertinent info. @ -Discharge. 29-year-old male presenting via EMS with c-collar in place after seizure. On my evaluation patient resting company no signs of distress. He is noted to have 2 lacerations of the scalp 1 is 3 cm in length and the other is 2 cm with mild active bleeding. Neurological examination no acute findings. Patient has pain to palpation of the right shoulder is exacerbated on range of motion. Offered pain medication has declined this time. Will undergo basic laboratory testing including CT imaging and x-rays. Patient's tetanus vaccination is also updated. CT of the brain and C-spine and x-ray no acute pro cess. Laboratory testing within normal limits. [place] used to successfully approximate scalp laceration. Have patient report back to the emergency department or to primary care provider in approximately 7 days for staple removal. Additionally, patient has been provided with dose of Keppra in the emergency department. Patient states that he has a refill of his Vimpat at the pharmacy. All questions have been answered at bedside answered return parameters discussed with the patient and his mother at bedside they both verbalized understanding. Case discussed with Dr. Barreto Undiagnosed new problem with uncertain prognosis? @ -No Drug Therapy requiring intensive monitoring for toxicity (Heparin, Nitro, Insulin, Cardizem)? @ -No Were any procedures done? @ -No Diagnosis/symptom? @ -seizure, head laceration, shoulder pain Acute, or Chronic, or Acute on Chronic? @ -acute Uncomplicated (without systemic symptoms) or Complicated (systemic symptoms)? @ -uncomplicated Side effects of treatment? @ -No Exacerbation, Progression, or Severe Exacerbation? @ -No Poses a threat to life or bodily function? How? (Chest pain, [place], [place], pneumonia, PE, COPD, DKA, ARF, appy, cholecystitis, CVA, Diverticulitis, Homicidal, Suicidal, threat to staff... and all critical care pts) @ -No - Lab Data Result diagrams: 11/30/24 16:11 11/30/24 16:11 Lab Results 11/30/24 11/30/24 Range/Units 16:11 16:11 WBC 7.7 (3.8-10.6) k/uL RBC 5.42 (4.30-5.90) m/uL Hgb 16.1 (13.0-17.5) gm/dL Hct 47.1 (39.0-53.0) % MCV 86.9 (80.0-100.0) fL MCH 29.8 (25.0-35.0) pg MCHC 34.2 (31.0-37.0) g/dL RDW 12.1 (11.5-15.5) % Plt Count 180 (150-450) k/uL MPV 8.7 Neutrophils % 65 % Lymphocytes % 26 % Monocytes % 4 % Eosinophils % 3 % Basophils % 0 % Neutrophils # 5.0 (1.3-7.7) k/uL Lymphocytes # 2.0 (1.0-4.8) k/uL Monocytes # 0.3 (0-1.0) k/uL Eosinophils # 0.2 (0-0.7) k/uL Basophils # 0.0 (0-0.2) k/uL Sodium 139 (137-145) mmol/L Potassium 4.1 (3.5-5.1) mmol/L Chloride 104 (98-107) mmol/L Carbon Dioxide 19 L (22-30) mmol/L Anion Gap 16 mmol/L BUN 14 (9-20) mg/dL Creatinine 1.11 (0.66-1.25) mg/dL Est GFR (CKD-EPI)AfAm >90 (>60 ml/min/1.73 sqM) Est GFR (CKD-EPI)NonAf 89 (>60 ml/min/1.73 sqM) Glucose 122 H (74-99) mg/dL Calcium 10.0 (8.4-10.2) mg/dL Magnesium 2.4 H (1.6-2.3) mg/dL Total Bilirubin 0.8 (0.2-1.3) mg/dL AST 74 H (17-59) U/L ALT 109 H (4-49) U/L Alkaline Phosphatase 117 (38-126) U/L Total Protein 7.8 (6.3-8.2) g/dL Albumin 4.9 (3.5-5.0) g/dL Disposition Clinical Impression: Seizure, Laceration of head Disposition: HOME SELF-CARE Condition: Good Instructions (If sedation given, give patient instructions): Staple Care (ED), Recurrent Seizures in Adults (ED) Additional Instructions: Please return to the Emergency Department if symptoms worsen or any other concerns. Return to the emergency department in approximately 7 days for staple removal Is patient prescribed a controlled substance at d/c from ED?: No Referrals: Keith Gilbert MD [Primary Care Provider] - 1-2 days Time of Disposition: 18:22
[2024-11-30] MEDS: levETIRAcetam IV 500 MG/5 ML VIAL IVP STA (16:15)
[2024-11-30 16:23] LABS: Basophils % (A) 0 %; Eosinophils # (A) 0.2 k/uL (0-0.7); Eosinophils % (A) 3 %; HCT 47.1 % (39.0-53.0); HGB 16.1 gm/dL (13.0-17.5); Lymphocytes % (A) 26 %; MCH 29.8 pg (25.0-35.0); MCHC 34.2 g/dL (31.0-37.0); MCV 86.9 fL (80.0-100.0); Mean Platelet Volume 8.7; Monocytes # (A) 0.3 k/uL (0-1.0); Monocytes % (A) 4 %; Neutrophils % (A) 65 %; Platelet Count 180 k/uL (150-450); RBC 5.42 m/uL (4.30-5.90); RDW 12.1 % (11.5-15.5); WBC 7.7 k/uL (3.8-10.6)
[2024-11-30 16:33] LABS: ALT 109 U/L (4-49); AST 74 U/L (17-59); African American GFR (CKD) >90 (>60 ml/min/1.73 sqM); Albumin 4.9 g/dL (3.5-5.0); Alkaline Phosphatase 117 U/L (38-126); Anion Gap 16 mmol/L; Blood Urea Nitrogen 14 mg/dL (9-20); Carbon Dioxide 19 mmol/L (22-30); Chloride 104 mmol/L (98-107); Glucose 122 mg/dL (74-99); Magnesium 2.4 mg/dL (1.6-2.3); Non-African American GFR(CKD) 89 (>60 ml/min/1.73 sqM); Potassium 4.1 mmol/L (3.5-5.1); Sodium 139 mmol/L (137-145); Total Bilirubin 0.8 mg/dL (0.2-1.3); Total Protein 7.8 g/dL (6.3-8.2)
[2024-11-30] MEDS: DIPH,PERTUS(ACELL)TETVAC-LF 0.5 ML VIAL IM ONE (17:13)
--- NOTE | 2024-11-30 17:13 | CT ---
EXAMINATION TYPE: CT brain cspine wo con DATE OF EXAM: 11/30/2024 4:35 PM COMPARISON: 12/20/2023 CLINICAL INDICATION: Male, 29 years old with history of seizure and fall, head injury, seizure and fa ll, head injury TECHNIQUE: CT of the brain is performed utilizing 3 mm thick sections through the posterior fossa and 3 mm thick sections through the remaining calvarium. Study is performed within 24 hours of arrival to the hospital. Contrast used: mL of , (none if empty) CT DLP: 1460.6 mGycm, Automated exposure control for dose reduction was used. FINDINGS: No abnormal hyperdensity is present to suggest an acute intracranial hemorrhage. No mass lesion is evident. No acute infarcts are evident. Ventricles and sulci are appropriate for the patient age. Paranasal sinuses and mastoid air cells within the [id number] are clear. IMPRESSIONS: 1. No acute intracranial process. Follow-up MRI can be performed as clinically indicated. CT cervical spine. COMPARISON: None TECHNIQUE: CT of the cervical spine is performed in the axial plane at 2 mm thick sections. Reconstr ucted images in the coronal, and sagittal plane are reviewed on the computer. FINDINGS: No acute fractures are evident. Vertebral body alignment is normal. Disc heights are preserved. Vertebral body heights are preserved. No spinal canal stenosis is evident. No neural foraminal stenosis is evident. IMPRESSION: 1. No acute osseous abnormality cervical spine. [facility], , 11/30/2024 5:11 PM
--- NOTE | 2024-11-30 18:00 | XR ---
EXAMINATION TYPE: XR shoulder complete RT DATE OF EXAM: 11/30/2024 5:31 PM COMPARISON: None. CLINICAL INDICATION: Male, 29 years old with history of fall, injury, seizure shower, fall, pain in s [place] TECHNIQUE: XR shoulder complete RT view(s) obtained. FINDINGS: The humeral head articulates with the glenoid. The acromio-clavicular junction is normal. No acute fractures or dislocations are evident. A follow up study can be performed 7-10 days from acute trauma for continued pain. MRI can be perfor med if soft tissue evaluation would be of benefit. IMPRESSION: 1. No acute osseous shoulder abnormality. [facility], , 11/30/2024 5:58 PM
[2024-11-30] MEDS: ACETAMINOPHEN TAB 500 MG TAB PO STA (18:31)
[2024-11-30 18:42] VITALS: BP 131/88; PULSE 74; TEMP 97.8
== END 2024-11-30 18:42 | disposition home or self-care (01) ==
LOC: EC 15:44
DX: S01.91XA Laceration without foreign body of unspecified part of head, initial encounter (principal); R56.9 Unspecified convulsions; M25.511 Pain in right shoulder; Z23 Encounter for immunization; X58.XXXA Exposure to other specified factors, initial encounter
CPT/HCPCS: 36415; 93005; 80053; 83735; 85025; 80235; 73030; 72125; 70450; 90715; 99284; 90471; 96365; 12002; J1953

== ENCOUNTER → 2025-01-13 | Outpatient (CLI) | payer BC | END | disposition home or self-care (01) | LOC: LABWHC1 09:35 | PROVIDERS: ATTEND Psychiatry & Neurology Neurology | DX: G40.209 Localization-related (focal) (partial) symptomatic epilepsy and epileptic syndromes with complex partial seizures, not intractable, without status epilepticus (principal) | CPT/HCPCS: 36415; 80235 ==